=== PATIENT | female | born 1990 | race Caucasian/White ===

== ENCOUNTER 2023-08-30 21:49 | Inpatient (IN) | payer BC ==
[~2023-08-30] VITALS: Ht 170.2 cm; Wt 101.4 kg
[~2023-08-30 21:49] MED LIST: CEPHALEXIN500 M1 PO; NO HOME MEDICATIONS
[2023-08-30 22:30] VITALS: BP 136/91; PULSE 75; TEMP 98.2
[2023-08-30 23:00] VITALS: BP 136/77; PULSE 80
[2023-08-30 23:30] VITALS: BP 151/91; PULSE 74
[2023-08-30] MEDS ORDERED: LR 1,000 ML IV SCH (23:30)
[2023-08-30] MEDS ORDERED: Penicillin G Potassium 5,000,000 UNITS in NS 100 ML IV ONE (23:30)
[2023-08-30 23:49] LABS: BASO # 0.1 K/mm3 (0.0-0.2); BASO % 0.4 % (0.0-2.0); EOS # 0.4 K/mm3 (0.0-0.7); EOS % 2.9 % (0.0-4.0); GRAN # 11.1 K/mm3 (1.4-6.5); GRAN % 77.9 % (42.2-75.2); HEMATOCRIT 41.8 % (37.0-47.0); HEMOGLOBIN 14.2 g/dl (12.5-16.0); LYMPH # 1.7 K/mm3 (1.2-3.4); LYMPH % 11.6 % (20.0-51.0); MEAN CELL VOLUME 90 fl (80.0-100.0); MEAN CORPUSCULAR HEMOGLOBIN 31 pg (27-31); MEAN CORPUSCULAR HGB CONC 34 g/dl (33.0-37.0); MEAN PLATELET VOLUME 12.5 fl (7.4-10.4); MONO % 6.8 % (1.7-9.3); PLATELET COUNT 159 K/mm3 (130-400); RED BLOOD COUNT 4.65 M/mm3 (4.10-5.30); REDCELL DISTRIBUTION WIDTH-CV 13.5 % (11.5-14.5)
[2023-08-31] VITALS (46 sets, daily range): BP systolic 97–152; BP diastolic 51–85; PULSE 66–99; TEMP 97.7–98.5
[2023-08-31 00:06] LABS: ALBUMIN 2.6 g/dL (3.5-5.0); BILIRUBIN,TOTAL 0.2 mg/dL (0.2-1.2); CALCIUM 9.1 mg/dL (8.4-10.2); CREATININE, serum 0.66 mg/dL (0.57-1.11); POTASSIUM 3.6 mEq/L (3.5-4.5); TOTAL PROTEIN 6.8 g/dl (6.2-8.1)
--- NOTE | 2023-08-31 00:25 | NUR ---
0012: ANES IN ROOM FOR EPIDURAL PLACEMENT PT SITTING ON SIDE OF BED WITH SPOUSE FOR SUPPORT. 0018: TIME OUT COMPLETED FOR EPIDURAL PLACEMENT 0022: EPIDURAL CATH PLACED BY Wilton RAY MAINTENANCE MECHANIC HELPER 0023: EPIDURAL TEST DOSE 0025: EPIDURAL PUMP STARTED PT PLACED SEMI-LUNDBERG IN BED WITH RIGHT TILT. PT TOLORATED EPIDURAL PROCEDURE.
[2023-08-31] MEDS ORDERED: diphenhydrAMINE 25 MG CAP PO PRN (00:45)
[2023-08-31] MEDS ORDERED: ePHEDrine 50 MG/10 ML VIAL IV PRN (00:45)
[2023-08-31] MEDS ORDERED: Ondansetron 4 MG/2 ML VIAL IV PRN (00:45)
[2023-08-31] MEDS ORDERED: Naloxone 0.4 MG/ML VIAL IV PRN ×2 (00:45→10:00)
[2023-08-31] MEDS ORDERED: diphenhydrAMINE 50 MG/ML 1 ML VIAL IV PRN (00:45)
[2023-08-31] MEDS ORDERED: Penicillin G Potassium 2,500,000 UNITS in NS 100 ML IV SCH (03:24)
[2023-08-31] MEDS ORDERED: PRENATAL TABLET PO (06:08)
[2023-08-31] MEDS ORDERED: TYLENOL 325MG325 MG PO (06:09)
--- NOTE | 2023-08-31 06:25 | NUR ---
0625Bedside report from Kourtney Rocha RN. Dr. Sáncehz at bedside and discusses AROM with pt who is agreeable to plan. 0629AROM by Dr. Sánchez for thick meconium stained fluid. Karla care provided, patient exaggerated runners right side. Plan of care discussed. Patient denies questions or needs at this time. 0650Recurrent variable decels with late return to baseline. RN at bedside. LR bolus infusing. Dr. Sácnhez remains on unit and reviews strips.
[2023-08-31] MEDS ORDERED: LR & Oxytocin 500 ML IV SCH (07:30)
--- NOTE | 2023-08-31 07:50 | NUR ---
0750Prolonged FHR decel down to 60-80bmp. RN and Dr. Sánchez at bedside. SVE 7-8cm. 0752Patient wedge left. Pitocin off. LR bolus infusing. 0754DrAbdoulaye Sánchez remains at bedside. Plan of care reviewed with pt to include FSE placement by Dr. Sánchez. Pt agreeable to plan of care. 0757FSE placed by Dr. Sánchez. External removed. FSE Tracing intermittently. EFM replaced and tracing well. Questions invited and answered. Patient resting wedge left with peanut ball. Call light within reach.
--- NOTE | 2023-08-31 09:27 | NUR ---
0927Shannon. Hakan [employer] at bedside per pt request. THONG dose adj by Wilton Mcclendon [employer] per pt request. See anesthesia record. 0930Dr. Sánchez at bedside. SVE 9-10cm. Patient high fowlers, knees together. Dr. Sánchez remains on unit.
--- NOTE | 2023-08-31 09:45 | NUR ---
0945Dr. Sánchez at bedside, SVE C/+[address] Sánchez. To begin pushing with pt. 0952Pushing reviewed with patient who verbalizes understanding. Begins pushing with contractions with RN at bedside. Strong maternal effort. Minimal descent. 1005Dr. Sánchez at bedside to evaluate. Noted to be LOP. Dr. Sánchez out of room, but remain on unit. 1027Dr. Sánchez at bedside to evaluate pushing efforts. Strong maternal effort. Slow progress. Dr. Sánchez off unit. Patient continues to push with contractions with RN at bedside. 1035Patient wedge right to push in alternative positions. 1037FHR decel to 80bmp and lasting [address] Sánchez updated on pt. See physician notification. 1114Patient continues to push with RN at bedside. No descent noted over last 45min of pushing. Dr. Sánchez updated on pt. See physician notification. 1127Dr. Sánchez at bedside to evaluate pt. Late decels noted. Patient wedge left. Pitocin off. Dr. Sánchez remains at bedside pushing with patient. Per Dr. Sánchez, head now in MIKAL position. descent noted with pushing efforts. 1152 Delivery of head. Tight nuchal clamped and cut on perineum. 1153Delivery of viable male infant at this time. To mother's chest where dried and stimulated by nursery Rn. Care of assumed by [employer] RN. 1156Spontaneous and intact delivery of placenta. Pitocin to 333ml/hr per orders. Fundus firm, midline, and bleeding minimal. Vaginal laceration repaired by Dr. Sánchez. Straight cath at this time by Dr. Sánchez. See doctor dictation, anesthesia record, and nurses notes. Karla care provided, pads changed, and ice pack to perineum. Plan of care and safety precautions reviewed with pt and spouse who verbalize understanding. Call light within reach.
[2023-08-31] MEDS ORDERED: Acetaminophen 500 MG TAB PO PRN (10:00)
[2023-08-31] MEDS ORDERED: Ibuprofen 800 MG TAB PO SCH (10:00)
[2023-08-31] MEDS ORDERED: Witch Hazel 50% Pads Bulk TUB TP PRN (10:00)
[2023-08-31] MEDS ORDERED: Magnes Hydrox (MOM) 80 MG/ML 30 ML CUP PO PRN (10:00)
[2023-08-31] MEDS ORDERED: Mag/Al Hydrox/Simeth Susp 30 ML CUP PO PRN (10:00)
[2023-08-31] MEDS ORDERED: Phenylephrine/Mineral Oil/Petrolatum 57 GM TUBE RC PRN (10:00)
[2023-08-31] MEDS ORDERED: Loratadine 10 MG TAB PO PRN (10:00)
[2023-08-31] MEDS ORDERED: oxyCODONE 5 MG TAB PO PRN (10:00)
[2023-08-31] MEDS ORDERED: Measles/Mumps/Rubella Virus Vaccine Live w Diluent 0.5 ML VIAL SQ SCH (10:00)
[2023-08-31] MEDS ORDERED: Sennosides/Docusate 8.6-50 MG TAB PO SCH (17:00)
[2023-08-31] MEDS ORDERED: traZODone 50 MG TAB PO PRN (21:00)
[2023-09-01 04:00] VITALS: BP 120/65; PULSE 76; TEMP 97.9
[2023-09-01] MEDS ORDERED: IBU800 M1 PO (09:39)
[2023-09-01 10:06] VITALS: BP 135/76; PULSE 79; TEMP 97.4
[2023-09-01 16:06] VITALS: BP 122/79; PULSE 75; TEMP 97.9
[2023-09-01 21:00] VITALS: BP 117/69; PULSE 89; TEMP 98
[2023-09-02 08:00] VITALS: BP 117/68; PULSE 66; TEMP 97.9
== END 2023-09-02 12:40 | disposition home or self-care (01) | DRG 807 ==
LOC: LDRO 21:49 → LDR 23:20 → OB 08-31 14:33
PROVIDERS: Obstetrics & Gynecology; ADMIT Obstetrics & Gynecology
PROC: 10E0XZZ Delivery of Products of Conception, External Approach (ICD-10-PCS; principal; 2023-08-31)
PROC: 0UQGXZZ Repair Vagina, External Approach (ICD-10-PCS; 2023-08-31)
DX: O48.0 Post-term pregnancy (principal); Z37.0 Single live birth; Z3A.41 41 weeks gestation of pregnancy; O76 Abnormality in fetal heart rate and rhythm complicating labor and delivery; O99.214 Obesity complicating childbirth; O99.824 Streptococcus B carrier state complicating childbirth; O77.0 Labor and delivery complicated by meconium in amniotic fluid; O70.0 First degree perineal laceration during delivery; O69.81X0 Labor and delivery complicated by cord around neck, without compression, not applicable or unspecified
CPT/HCPCS: J2540; J2590; J7120